=== PATIENT | female | born 2000 | race Caucasian/White ===

== ENCOUNTER 2018-10-07 19:10 | Emergency (ER) | payer BC ==
[2018-10-07 20:37] VITALS: BP 108/62
[2018-10-07] MEDS ORDERED: Benzonatate CAP* 100 MG PO ONE (21:05)
--- NOTE | 2018-10-07 21:10 | UC ---
Respiratory Complaint HPI - HPI Summary HPI Summary: 18-year-old female presents with complaints of a persistent dry cough for the past 10 days. States cough tends to get worse at night when she is lying down. She has some had mild nasal congestion and runny nose. Patient reports that she spoke to a physician. Telemedicine yesterday regarding her symptoms and was diagnosed with bronchitis and started on a course of prednisone. States she is taken 2 doses with no changes in her symptoms. History of asthma as a child. Denies fever, chills, ear pain, sore throat, chest pain, wheezing, or shortness of breath. - History of Current Complaint Chief Complaint: UCRespiratory Stated Complaint: COUGH/ST Time Seen by Provider: 10/07/18 20:57 Hx Obtained From: Patient Hx Last Menstrual Period: 09/20/18 Pain Intensity: 0 - Allergies/Home Medications Allergies/Adverse Reactions: Allergies Allergy/AdvReac Type Severity Reaction Status Date / Time No Known Allergies Allergy Verified 10/07/18 20:37 Home Medications: Home Medications Sertraline HCl [Zoloft] 200 mg PO DAILY 10/07/18 [History Confirmed 10/07/18] predniSONE [Prednisone 20 MG TAB] 40 mg PO DAILY 10/07/18 [History Confirmed ] PMH/Surg Hx/FS Hx/Imm Hx Previously Healthy: Yes Respiratory History: Asthma - Surgical History Surgical History: None - Family History Known Family History: Positive: Non-Contributory - Social History Occupation: Student Lives: Dormitory/Roommates Alcohol Use: Rare Substance Use Type: None Smoking Status (MU): Never Smoked Tobacco Review of Systems All Other Systems Reviewed And Are Negative: Yes Constitutional: Negative: Fever, Chills Skin: Negative: Rash ENT: Positive: Nasal Discharge. Negative: Sore Throat, Ear Ache, Sinus Congestion, Sinus Pain/Tenderness Respiratory: Positive: Cough. Negative: Shortness Of Breath Cardiovascular: Positive: Negative Gastrointestinal: Positive: Negative Genitourinary: Positive: Negative Musculoskeletal: Positive: Negative Neurological: Positive: Negative Is Patient Immunocompromised?: No Physical Exam - Summary Physical Exam Summary: GENERAL APPEARANCE: Well developed, well nourished, alert and cooperative, and appears to be in no acute distress. EYES: Conjunctiva clear. No drainage. PERRL, EOM intact. Vision is grossly intact. EARS: External auditory canals and tympanic membranes clear, hearing grossly intact. NOSE: Mild nasal congestion. No nasal discharge. THROAT: Pharygeal cobblestoning. No tonsilar inflammation, swelling, exudate, or lesions. Uvula midline. NECK: Neck supple, non-tender without lymphadenopathy. CARDIAC: Normal S1 and S2. No S3, S4 or murmurs. Rhythm is regular. There is no peripheral edema, cyanosis or pallor. Extremities are warm and well perfused. Capillary refill is less than 2 seconds. Peripheral pulses intact. LUNGS: Clear to auscultation without rales, rhonchi, wheezing or diminished breath sounds. Dry, non-productive cough. ABDOMEN: Positive bowel sounds. Soft, nondistended, nontender. No guarding or rebound. No masses or hepatosplenomegally. MUSKULOSKELETAL: ROM intact to all extremities. No joint erythema or tenderness. Normal muscular development. Normal gait. SKIN: Skin normal color, texture and turgor with no lesions or eruptions. Triage Information Reviewed: Yes Vital Signs: Initial Vital Signs Temp 98.9 F 10/07/18 20:29 Pulse 66 10/07/18 20:29 Resp 16 10/07/18 20:29 BP 108/62 10/07/18 20:29 Pulse Ox 98 10/07/18 20:29 Vital Signs Reviewed: Yes Respiratory Course/Dx - Course Course Of Treatment: 18-year-old female presents with complaints of a persistent dry cough for the past 10 days. States cough tends to get worse at night when she is lying down. She has some had mild nasal congestion and runny nose. Patient reports that she spoke to a physician. Telemedicine yesterday regarding her symptoms and was diagnosed with bronchitis and started on a course of prednisone. States she is taken 2 doses with no changes in her symptoms. History of asthma as a child. Denies fever, chills, ear pain, sore throat, chest pain, wheezing, or shortness of breath. Afebrile. Vital signs stable. Patient had mild nasal congestion, pharyngeal cobblestoning without tonsillar swelling or exudate, no cervical lymphadenopathy, clear bilateral breath sounds, a dry nonproductive cough, and otherwise unremarkable exam. Discussed with the patient that I feel that her symptoms are consistent with an acute bronchitis although I think there may be a component of postnasal drip to her cough as well. Recommending that she start fluticasone nasal spray 2 sprays each nostril once daily. Started that she could continue to use the prednisone as previously prescribed. She was given a dose of Tessalon Perles for the clinic and provided a prescription to use Tessalon Perles 1 capsule 3 times a day as needed for cough. She is to return here or follow up with the [facility] in 5 days if symptoms are not improving. Anticipatory guidance and warning symptoms were reviewed with the patient. Verbalizes understanding and agrees with plan of care. - Differential Dx/Diagnosis Differential Diagnosis/HQI/PQRI: Asthma, Bronchitis, Lower Resp Infection, Sinusitis Provider Diagnosis: Bronchitis Discharge ED - Sign-Out/Discharge Documenting (check all that apply): Patient Departure All imaging exams completed and their final reports reviewed: No Studies - Discharge Plan Condition: Stable Disposition: HOME Prescriptions: Benzonatate CAP* [Tessalon 100 MG CAP*] 100 mg PO TID PRN #15 cap PRN Reason: Cough Fluticasone NASAL SPRAY 50MCG* [Flonase NASAL SPRAY 50MCG*] 2 spray BOTH NARES DAILY #1 btl Patient Education Materials: Acute Bronchitis (ED) Referrals: No Primary Care Phys,NOPCP [Primary Care Provider] - Additional Instructions: Your history and exam are consistent with acute bronchitis which is most often caused by a viral infection. Viral infections do not respond to antibiotics and are limited to the treatment of symptoms. Viral infections typically run their course in 7-10 days. Be aware that the cough with bronchitis may persist for 2-3 weeks even if other symptoms have improved. Get plenty of rest. Drink plenty of fluids. Run a cool mist humidifer in your room at night. Take over the counter acetaminophen (Tylenol) or ibuprofen (Advil, Motrin) according to directions as needed for pain or fever. Take Tessalon Perles 1 cap every 8 hours as needed for cough. I do think that there may be a post-nasal drip component to your cough and recommend starting fluticasone nasal spray 2 sprays each nostril once daily. You may continue the prednisone as prescribed. Return here or follow up with the [facility] in 5 days if symptoms do not improve. Seek immediate medical attention in the emergency room if you have fever greater than 100.5 F despite taking acetaminophen or ibuprofen, have chest pain , difficulty breathing, or have any worsening of symptoms. - Billing Disposition and Condition Condition: STABLE Disposition: Home
== END 2018-10-07 21:21 | disposition home or self-care (01) ==
LOC: UCCORT 19:10
DX: J40 Bronchitis, not specified as acute or chronic (principal)
CPT/HCPCS: 99202; A9270-GY; G0463